=== PATIENT | male | born 1965 | race Caucasian/White ===

== ENCOUNTER 2022-01-25 01:20 | Inpatient (IN) | payer BC ==
[2022-01-25 02:05] VITALS: BMI 29.8
[2022-01-25] MEDS ORDERED: Metoprolol Tartrate 5 MG/5 ML VIAL IVP PRN (02:15)
[2022-01-25] MEDS ORDERED: Lorazepam 2 MG/ML VIAL SLOW IVP PRN (02:26)
[2022-01-25] MEDS: Lactated Ringer's 1,000 ML IV SCH ×3 (02:38→18:05)
[2022-01-25] MEDS: Morphine 4 MG/ML VIAL SLOW IVP PRN ×3 (02:46→17:45)
[2022-01-25 03:58] LABS: #Monocytes 1.5 10x3/uL (0.0-1.1); #Neutrophils 12.5 10x3/uL (1.5-8.4); %Basophils 0.1 % (0.0-2.0); %Lymphocytes 7.6 % (18.0-47.0); %Monocytes 9.7 % (0.0-10.0); %Neutrophils 82.1 % (40.0-75.0); Hemoglobin 10.9 g/dL (13.5-17.5); Mean Corpuscular HGB CONC 33.5 g/dL (32.0-36.0); Mean Corpuscular Hemoglobin 28.3 pg (27.0-33.0); Mean Corpuscular Volume 84.4 fl (81.2-95.1); Mean Platelet Volume 10.2 fl (7.4-10.4); Platelet Count 284 10x3/uL (150-450); RBC Distribution Width 13.3 % (11.5-14.5); Red Blood Cell (RBC) Count 3.85 10x6/uL (4.32-5.72); White Blood Cell (WBC) Count 15.2 10x3/uL (3.5-10.5)
[2022-01-25 04:17] LABS: INR-International Normal Ratio 0.9; PTT 21.6 sec (22.0-33.0); Prothrombin Time 10.1 sec (9.5-12.1)
[2022-01-25 04:22] LABS: ALT (SGPT) 14 U/L (8-55); AST (SGOT) 13 U/L (5-34); Albumin 3.6 g/dL (3.5-5.0); Alkaline Phosphatase 33 U/L (40-110); Anion Gap 15 mmol/L (10-20); BUN (Urea Nitrogen) 18 mg/dL (8.4-25.7); Bilirubin, Total 0.5 mg/dL (0.2-1.2); Calc. Creatinine Clearance 96 mL/min (70-130); Calcium 9.1 mg/dL (7.8-10.44); Carbon Dioxide 25 mmol/L (22-29); Cardiac Risk 2.1 (Less than 4.5); Chloride 102 mmol/L (98-107); Cholesterol 140 mg/dl (< 200 Desired); Globulin 2.4 g/dL (2.4-3.5); Glucose 138 mg/dL (70-105); HDL Cholesterol 66 mg/dL (>60 Neg Risk); LDL Cholesterol, Calculated 63 mg/dL; Lipase 972 U/L (8-78); Magnesium 1.5 mg/dL (1.6-2.6); Potassium 5.2 mmol/L (3.5-5.1); Sodium 137 mmol/L (136-145); Triglycerides 53 mg/dL (Less than 150)
[2022-01-25] MEDS: Ondansetron PF 4 MG/2 ML Vial IVP PRN ×2 (06:44→11:37)
[2022-01-25] MEDS ORDERED: Magnesium 2 GM/50 ML(in water) 2 GM in Premix Bag 1 BAG IVPB SCH (07:00)
[2022-01-25] MEDS ORDERED: Magnesium 2 GM/50 ML BAG (IN WATER) ONE (08:18)
[2022-01-25] MEDS: Pantoprazole 40 MG VIAL IVP SCH (08:21)
[2022-01-25] MEDS ORDERED: Lactated Ringer's 1,000 ML IV SCH (11:29)
[2022-01-25] MEDS ORDERED: Fentanyl 100 MCG/2 ML VIAL SLOW IVP SCH (11:30)
[2022-01-25] MEDS ORDERED: Lorazepam 2 MG/ML VIAL SLOW IVP SCH (11:30)
[2022-01-25] MEDS ORDERED: cloNIDine 0.1 MG TAB PO SCH (12:30)
[2022-01-25] MEDS ORDERED: cloNIDine 0.2mg/24 Hour PATCH TD SCH (13:00)
[2022-01-25] MEDS: Morphine 2 MG/ML VIAL SLOW IVP PRN ×3 (14:01→22:52)
[2022-01-25] MEDS: Lorazepam 2 MG/ML VIAL SLOW IVP SCH (20:30)
[2022-01-26] MEDS: Lactated Ringer's 1,000 ML IV SCH ×5 (00:47→16:34)
[2022-01-26] MEDS: Morphine 4 MG/ML VIAL SLOW IVP PRN ×6 (02:01→20:43)
[2022-01-26 04:04] LABS: Mean Corpuscular HGB CONC 33.2 g/dL (32.0-36.0); Mean Corpuscular Hemoglobin 28.3 pg (27.0-33.0); Mean Corpuscular Volume 85.2 fl (81.2-95.1); Mean Platelet Volume 10.2 fl (7.4-10.4); Platelet Count 184 10x3/uL (150-450); RBC Distribution Width 13.3 % (11.5-14.5); Red Blood Cell (RBC) Count 3.18 10x6/uL (4.32-5.72); White Blood Cell (WBC) Count 14.9 10x3/uL (3.5-10.5)
[2022-01-26 04:16] LABS: MDiff Complete? YES; Manual Diff?? YES
[2022-01-26 04:23] LABS: Band 12 % (5-11); Lymphocytes 1 % (21-51); Monocytes 6 % (0-10); Neutrophil 80 % (42-75); Reactive Lymphocytes 1 % (0-10)
[2022-01-26 04:24] LABS: Dohle Bodies SLIGHT; Platelet Morphology Comment Appears Adequate; Toxic Granulation SLIGHT; Vacuoles SLIGHT
[2022-01-26 04:26] LABS: ALT (SGPT) 11 U/L (8-55); AST (SGOT) 16 U/L (5-34); Albumin 3.2 g/dL (3.5-5.0); Alkaline Phosphatase 29 U/L (40-110); Anion Gap 13 mmol/L (10-20); BUN (Urea Nitrogen) 22 mg/dL (8.4-25.7); Bilirubin, Total 0.6 mg/dL (0.2-1.2); Calc. Creatinine Clearance 108 mL/min (70-130); Calcium 8.4 mg/dL (7.8-10.44); Carbon Dioxide 27 mmol/L (22-29); Chloride 104 mmol/L (98-107); Globulin 2.2 g/dL (2.4-3.5); Glucose 116 mg/dL (70-105); Lipase 338 U/L (8-78); Potassium 4.1 mmol/L (3.5-5.1); Protein, Total 5.4 g/dL (6.0-8.3); Sodium 140 mmol/L (136-145)
[2022-01-26] MEDS: Pantoprazole 40 MG VIAL IVP SCH (09:25)
[2022-01-26] MEDS: Lorazepam 2 MG/ML VIAL SLOW IVP SCH (09:26)
[2022-01-26] MEDS ORDERED: Furosemide 40 MG/4 ML VIAL SLOW IVP SCH (20:00)
[2022-01-26] MEDS: Acetaminophen 325 MG TAB PO PRN (20:40)
[2022-01-26] MEDS: chlordiazePOXIDE HCl 5 MG CAP PO SCH (21:02)
[2022-01-27] MEDS: Morphine 4 MG/ML VIAL SLOW IVP PRN ×6 (01:53→23:54)
[2022-01-27 04:29] LABS: #Basophils 0.1 10x3/uL (0.0-0.2); #Eosinphils 0.1 10x3/uL (0.0-0.5); #Monocytes 1.5 10x3/uL (0.0-1.1); #Neutrophils 12.1 10x3/uL (1.5-8.4); %Basophils 0.4 % (0.0-2.0); %Eosinophils 0.7 % (0.0-6.0); %Lymphocytes 9.5 % (18.0-47.0); %Monocytes 9.7 % (0.0-10.0); Hemoglobin 9.1 g/dL (13.5-17.5); Mean Corpuscular HGB CONC 32.7 g/dL (32.0-36.0); Mean Corpuscular Hemoglobin 28.3 pg (27.0-33.0); Mean Corpuscular Volume 86.6 fl (81.2-95.1); Mean Platelet Volume 10.4 fl (7.4-10.4); Platelet Count 187 10x3/uL (150-450); RBC Distribution Width 13.1 % (11.5-14.5); Red Blood Cell (RBC) Count 3.21 10x6/uL (4.32-5.72); White Blood Cell (WBC) Count 15.3 10x3/uL (3.5-10.5)
[2022-01-27 04:49] LABS: ALT (SGPT) 11 U/L (8-55); AST (SGOT) 22 U/L (5-34); Albumin 3.4 g/dL (3.5-5.0); Alkaline Phosphatase 31 U/L (40-110); Anion Gap 13 mmol/L (10-20); BUN (Urea Nitrogen) 12 mg/dL (8.4-25.7); Bilirubin, Total 0.8 mg/dL (0.2-1.2); CRP (Inflammatory) 25.81 mg/dL (= or < 0.5); Calc. Creatinine Clearance 140 mL/min (70-130); Calcium 8.9 mg/dL (7.8-10.44); Carbon Dioxide 30 mmol/L (22-29); Cardiac Risk 2.2 (Less than 4.5); Chloride 95 mmol/L (98-107); Cholesterol 115 mg/dl (< 200 Desired); Globulin 2.7 g/dL (2.4-3.5); Glucose 104 mg/dL (70-105); HDL Cholesterol 52 mg/dL (>60 Neg Risk); LDL Cholesterol, Calculated 51 mg/dL; Potassium 3.4 mmol/L (3.5-5.1); Protein, Total 6.1 g/dL (6.0-8.3); Sodium 135 mmol/L (136-145); Triglycerides 62 mg/dL (Less than 150)
[2022-01-27] MEDS: Lactated Ringer's 1,000 ML IV SCH (05:00)
[2022-01-27] MEDS: Ondansetron PF 4 MG/2 ML Vial IVP PRN (06:38)
[2022-01-27] MEDS: Folic Acid 1 MG TAB PO SCH (08:40)
[2022-01-27] MEDS: Thiamine 100 MG TAB PO SCH (08:40)
[2022-01-27] MEDS: Furosemide 40 MG/4 ML VIAL SLOW IVP SCH (08:40)
[2022-01-27] MEDS: Polyethylene Glycol 3350 17 GM Packet PO SCH (08:40)
[2022-01-27] MEDS: Pantoprazole 40 MG VIAL IVP SCH (08:40)
[2022-01-27] MEDS: chlordiazePOXIDE HCl 5 MG CAP PO SCH ×3 (08:40→20:34)
[2022-01-27] MEDS ORDERED: Cefepime 1 GM in Sodium Chloride 0.9% 100 ML IVPB SCH (09:00)
[2022-01-27] MEDS ORDERED: rOPINIRole HCl 1 MG TAB PO PRN (12:04)
[2022-01-27] MEDS ORDERED: Iopamidol 300 61% 100 ML VIAL FS ONE (12:30)
[2022-01-27] MEDS ORDERED: Piperacillin/Tazobactam 3.375 GM in Sodium Chloride 0.9% 100 ML IVPB SCH (14:00)
[2022-01-27] MEDS ORDERED: Capsaicin 0.025% Cream 60 gm Tube TOP PRN (14:28)
[2022-01-27] MEDS: Sodium Chloride 0.9% 1,000 ML IV SCH (16:30)
[2022-01-27] MEDS: Lidocaine 5% Patch TD SCH (16:30)
[2022-01-27] MEDS: Acetaminophen 325 MG TAB PO PRN (16:31)
[2022-01-27] MEDS: Piperacillin/Tazobactam 3.375 GM in Sodium Chloride 0.9% 100 ML IVPB SCH (17:07)
[2022-01-27] MEDS ORDERED: Piperacillin/Tazobactam 3.375 GM VIAL ONE (17:08)
[2022-01-27] MEDS ORDERED: Calcium Carbonate 500 MG ChewTAB PO PRN (17:14)
[2022-01-27] MEDS: HYDROcodone/Acetaminophen 5/325 mg Tablet PO PRN (20:32)
[2022-01-27] MEDS: Lisinopril 20 MG TAB PO SCH (20:32)
[2022-01-27] MEDS: hydrALAZINE 25 MG TAB PO SCH (20:33)
[2022-01-27] MEDS: Carvedilol 25 MG TAB PO SCH (20:34)
[2022-01-28] MEDS: Piperacillin/Tazobactam 3.375 GM in Sodium Chloride 0.9% 100 ML IVPB SCH ×3 (02:04→17:54)
[2022-01-28] MEDS: HYDROcodone/Acetaminophen 5/325 mg Tablet PO PRN ×3 (05:19→20:34)
[2022-01-28] MEDS: Transdermal Patch Removal TOP SCH (05:20)
[2022-01-28] MEDS: Sodium Chloride 0.9% 1,000 ML IV SCH ×2 (05:21→20:33)
[2022-01-28 08:36] LABS: #Eosinphils 0.3 10x3/uL (0.0-0.5); #Monocytes 1.2 10x3/uL (0.0-1.1); #Neutrophils 9.1 10x3/uL (1.5-8.4); %Basophils 0.3 % (0.0-2.0); %Eosinophils 2.2 % (0.0-6.0); %Lymphocytes 9.6 % (18.0-47.0); %Monocytes 10.1 % (0.0-10.0); %Neutrophils 77.4 % (40.0-75.0); Hemoglobin 7.8 g/dL (13.5-17.5); Mean Corpuscular HGB CONC 33.8 g/dL (32.0-36.0); Mean Corpuscular Hemoglobin 28.4 pg (27.0-33.0); Mean Platelet Volume 10.3 fl (7.4-10.4); Platelet Count 207 10x3/uL (150-450); Red Blood Cell (RBC) Count 2.75 10x6/uL (4.32-5.72); White Blood Cell (WBC) Count 11.8 10x3/uL (3.5-10.5)
[2022-01-28] MEDS: Amlodipine 10 MG TAB PO SCH (09:04)
[2022-01-28] MEDS: Folic Acid 1 MG TAB PO SCH (09:07)
[2022-01-28] MEDS: Escitalopram Oxalate 10 mg Tablet PO SCH (09:07)
[2022-01-28] MEDS: Thiamine 100 MG TAB PO SCH (09:07)
[2022-01-28] MEDS: Polyethylene Glycol 3350 17 GM Packet PO SCH (09:07)
[2022-01-28 09:08] LABS: Anion Gap 13 mmol/L (10-20); BUN (Urea Nitrogen) 15 mg/dL (8.4-25.7); Calc. Creatinine Clearance 148 mL/min (70-130); Calcium 8.6 mg/dL (7.8-10.44); Carbon Dioxide 27 mmol/L (22-29); Chloride 98 mmol/L (98-107); Glucose 94 mg/dL (70-105); Potassium 3.2 mmol/L (3.5-5.1); Sodium 135 mmol/L (136-145)
[2022-01-28] MEDS: Pantoprazole 40 MG VIAL IVP SCH (09:08)
[2022-01-28] MEDS: Lisinopril 20 MG TAB PO SCH ×2 (09:40→20:35)
[2022-01-28] MEDS: hydrALAZINE 25 MG TAB PO SCH ×2 (09:40→20:34)
[2022-01-28] MEDS: Carvedilol 25 MG TAB PO SCH ×2 (09:41→20:36)
[2022-01-28] MEDS: Furosemide 40 MG/4 ML VIAL SLOW IVP SCH (09:45)
[2022-01-28] MEDS: chlordiazePOXIDE HCl 5 MG CAP PO SCH ×3 (11:14→20:34)
[2022-01-28] MEDS ORDERED: Mag-Al 1200 mg/1200 mg/30 ML UDCUP PO PRN ×2 (12:22→12:55)
[2022-01-28] MEDS ORDERED: Milk Of Magnesia 30 ML UDCUP PO PRN (12:53)
[2022-01-28] MEDS ORDERED: Potassium Chloride 20 MEQ TAB PO SCH (17:00)
[2022-01-28] MEDS: Lidocaine 5% Patch TD SCH (17:55)
[2022-01-29] MEDS: Piperacillin/Tazobactam 3.375 GM in Sodium Chloride 0.9% 100 ML IVPB SCH ×2 (01:07→09:26)
[2022-01-29] MEDS: HYDROcodone/Acetaminophen 5/325 mg Tablet PO PRN ×2 (04:54→22:13)
[2022-01-29] MEDS: Transdermal Patch Removal TOP SCH (04:55)
[2022-01-29 05:05] LABS: #Eosinphils 0.3 10x3/uL (0.0-0.5); #Monocytes 1.2 10x3/uL (0.0-1.1); #Neutrophils 6.9 10x3/uL (1.5-8.4); %Basophils 0.4 % (0.0-2.0); %Eosinophils 2.9 % (0.0-6.0); %Lymphocytes 10.8 % (18.0-47.0); %Monocytes 12.3 % (0.0-10.0); %Neutrophils 73.1 % (40.0-75.0); Hemoglobin 8.7 g/dL (13.5-17.5); Mean Corpuscular HGB CONC 33.3 g/dL (32.0-36.0); Mean Corpuscular Hemoglobin 28.3 pg (27.0-33.0); Platelet Count 236 10x3/uL (150-450); RBC Distribution Width 12.8 % (11.5-14.5); Red Blood Cell (RBC) Count 3.07 10x6/uL (4.32-5.72); White Blood Cell (WBC) Count 9.4 10x3/uL (3.5-10.5)
[2022-01-29 05:25] LABS: Anion Gap 13 mmol/L (10-20); BUN (Urea Nitrogen) 10 mg/dL (8.4-25.7); Calc. Creatinine Clearance 150 mL/min (70-130); Calcium 8.5 mg/dL (7.8-10.44); Carbon Dioxide 28 mmol/L (22-29); Chloride 100 mmol/L (98-107); Glucose 104 mg/dL (70-105); Potassium 3.3 mmol/L (3.5-5.1); Sodium 138 mmol/L (136-145)
[2022-01-29] MEDS: Sodium Chloride 0.9% 1,000 ML IV SCH (09:10)
[2022-01-29] MEDS: Folic Acid 1 MG TAB PO SCH (09:23)
[2022-01-29] MEDS: Escitalopram Oxalate 10 mg Tablet PO SCH ×2 (09:24→20:42)
[2022-01-29] MEDS: hydrALAZINE 25 MG TAB PO SCH (09:24)
[2022-01-29] MEDS: Carvedilol 25 MG TAB PO SCH ×2 (09:24→20:42)
[2022-01-29] MEDS: Lisinopril 20 MG TAB PO SCH ×2 (09:25→20:43)
[2022-01-29] MEDS: Amlodipine 10 MG TAB PO SCH (09:25)
[2022-01-29] MEDS: Thiamine 100 MG TAB PO SCH (09:25)
[2022-01-29] MEDS: Pantoprazole 40 MG VIAL IVP SCH (09:26)
[2022-01-29] MEDS: Furosemide 40 MG/4 ML VIAL SLOW IVP SCH (09:26)
[2022-01-29] MEDS: Polyethylene Glycol 3350 17 GM Packet PO SCH (09:35)
[2022-01-29] MEDS: chlordiazePOXIDE HCl 5 MG CAP PO SCH (09:40)
[2022-01-29] MEDS: Lidocaine 5% Patch TD SCH (16:27)
[2022-01-29] MEDS: Amoxicillin/Potassium Clav 875 MG TAB PO SCH (20:42)
[2022-01-30] MEDS: Transdermal Patch Removal TOP SCH (05:53)
[2022-01-30] MEDS ORDERED: hydrALAZINE 25 MG TAB PO SCH (09:00)
[2022-01-30] MEDS ORDERED: Carvedilol 25 MG TAB PO SCH (09:00)
[2022-01-30] MEDS: Polyethylene Glycol 3350 17 GM Packet PO SCH (09:55)
[2022-01-30] MEDS: Lisinopril 20 MG TAB PO SCH (09:56)
[2022-01-30] MEDS: Amlodipine 10 MG TAB PO SCH (09:57)
[2022-01-30] MEDS: Amoxicillin/Potassium Clav 875 MG TAB PO SCH (09:57)
[2022-01-30] MEDS: Escitalopram Oxalate 10 mg Tablet PO SCH (09:57)
[2022-01-30] MEDS: Furosemide 40 MG/4 ML VIAL SLOW IVP SCH (09:58)
[2022-01-30] MEDS: Pantoprazole 40 MG VIAL IVP SCH (09:58)
[2022-01-30 13:16] VITALS: BP 106/64; TEMP 97.1
== END 2022-01-30 13:30 | disposition home or self-care (01) | DRG 438 ==
LOC: CSHTELE 01:20
PROVIDERS: ADMIT Family Medicine; ATTEND Family Medicine
DX: K85.20 Alcohol induced acute pancreatitis without necrosis or infection (principal); J69.0 Pneumonitis due to inhalation of food and vomit; I42.9 Cardiomyopathy, unspecified; I50.22 Chronic systolic (congestive) heart failure; I10 Essential (primary) hypertension; F10.10 Alcohol abuse, uncomplicated; E55.9 Vitamin D deficiency, unspecified; E78.5 Hyperlipidemia, unspecified; I25.10 Atherosclerotic heart disease of native coronary artery without angina pectoris; D64.9 Anemia, unspecified; Z98.890 Other specified postprocedural states
CPT/HCPCS: 36415; 71045; 71046; 71260; 80048; 80053; 80061; 83690; 83735; 85025; 85610; 85730; 86140; 93306; 94760; C9113; J0692; J1940; J2060; J2270; J2405; J2543; J3010; J3475; J3490; J7050; J7120; Q9967